=== PATIENT | female | born 1940 | race Hispanic/Latino ===

== ENCOUNTER 2024-11-14 22:20 | Emergency (ER) | payer MEDICARE ==
[~2024-11-14] VITALS: Ht 152.4 cm; Wt 74.8 kg
[2024-11-14 22:57] VITALS: TEMP 97.9
[2024-11-14 23:04] LABS: BASOPHILS % 0.3 % (0.0-1.0); EOSINOPHILS % 2.3 % (0.0-6.0); LYMPHOCYTES % 28.9 % (18.0-39.1); MONOCYTES % 7.4 % (4.4-11.3); NEUTROPHILS % 60.9 % (38.7-80.0); RED CELL DISTRIBUTION WIDTH 13.6 % (11.7-14.4)
[2024-11-14 23:23] LABS: INR 0.95
[2024-11-14 23:33] LABS: B-TYPE NATRIURETIC PEPTIDE2 31.3 pg/mL (0-100); EST GLOMERULAR FILTRATION RATE 55.0 ML/MIN (>=60)
[2024-11-14] MEDS ORDERED: SODIUM CHLORIDE 0.9% 100 ML ONE (23:52)
[2024-11-14] MEDS: SODIUM CHLORIDE 0.9% 1000ML 1,000 ML IV STA (23:52)
[2024-11-14] MEDS ORDERED: IOPAMIDOL 370 MG/ML 100 ML INFUS..BTL INJ ONE (23:53)
[2024-11-15] MEDS ORDERED: ACYCLOVIR800 MG PO (01:30)
[2024-11-15] MEDS ORDERED: PREDNISONE20 MG PO (01:30)
[2024-11-15] MEDS: PREDNISONE 20 MG TAB PO STA (01:42)
[2024-11-15] MEDS: ACYCLOVIR 200 MG CAP PO STA (01:42)
[2024-11-15 01:43] VITALS: PULSE 71; RESP 18; O2SAT 99
== END 2024-11-15 01:51 | disposition home or self-care (01) ==
LOC: ER 22:28
DX: G51.0 Bell's palsy (principal); I10 Essential (primary) hypertension; E78.5 Hyperlipidemia, unspecified; K21.9 Gastro-esophageal reflux disease without esophagitis; M19.09 Primary osteoarthritis, other specified site; F41.9 Anxiety disorder, unspecified; F32.A Depression, unspecified
CPT/HCPCS: 36415; 70450; 70496; 70498; 71045; 80053; 82140; 82550; 82948; 83690; 83880; 84484; 85025; 85610; 93005; 94760; 99284; J7030; J7050; J7512; Q9967